=== PATIENT | female | born 1990 | race Caucasian/White ===

== ENCOUNTER 2021-01-22 15:26 | Emergency (ER) | payer OTHER ==
[~2021-01-22] VITALS: Ht 152.4 cm; Wt 59.0 kg
[2021-01-22] MEDS ORDERED: PANADOL EXTRA500 MG (16:46)
[2021-01-22] MEDS ORDERED: ACIDOPHILUS1 EAC3 (16:46)
== END 2021-01-22 20:38 | disposition home or self-care (01) ==
LOC: ER 15:26
DX: O26.891 Other specified pregnancy related conditions, first trimester (principal); Z3A.01 Less than 8 weeks gestation of pregnancy

== ENCOUNTER 2021-05-06 13:25 | Outpatient (CLI) | payer OTHER ==
[~2021-05-06 13:25] MED LIST: ACIDOPHILUS1 EAC3; PANADOL EXTRA500 MG
== END 2021-05-06 14:34 | disposition home or self-care (01) ==
LOC: PRENATAL 13:25
PROVIDERS: ATTEND Obstetrics & Gynecology Maternal & Fetal Medicine
DX: O35.0XX1 Maternal care for (suspected) central nervous system malformation in fetus, fetus 1 (principal); O35.3XX1 Maternal care for (suspected) damage to fetus from viral disease in mother, fetus 1; O98.512 Other viral diseases complicating pregnancy, second trimester; Z36.89 Encounter for other specified antenatal screening; Z3A.22 22 weeks gestation of pregnancy

== ENCOUNTER 2021-08-29 01:57 | Inpatient (IN) | payer OTHER ==
[~2021-08-29] VITALS: Ht 152.4 cm; Wt 70.3 kg
[2021-08-29] MEDS ORDERED: PRENATAL TABLE1 EAC1 PO (02:29)
== END 2021-09-01 14:19 | disposition home or self-care (01) | DRG 788 ==
LOC: LDR 01:57 → OB/GYN 01:57
PROVIDERS: ADMIT Obstetrics & Gynecology; ATTEND Obstetrics & Gynecology
PROC: 4A1HXCZ Monitoring of Products of Conception, Cardiac Rate, External Approach (ICD-10-PCS; 2021-08-29)
PROC: 10D00Z1 Extraction of Products of Conception, Low, Open Approach (ICD-10-PCS; principal; 2021-08-29 19:00)
DX: O62.0 Primary inadequate contractions (principal); Z3A.39 39 weeks gestation of pregnancy; Z37.0 Single live birth; Z20.822 Contact with and (suspected) exposure to COVID-19